=== PATIENT | female | born 1970 | race Caucasian/White ===

== ENCOUNTER 2022-10-05 03:06 | Emergency (ER) | payer MEDICAID ==
[~2022-10-05] VITALS: Ht 157.5 cm; Wt 72.6 kg
[2022-10-05 03:09] VITALS: BP 122/69
--- NOTE | 2022-10-05 03:25 | NUR ---
Patient taken to bed 7 via WC.
--- NOTE | 2022-10-05 04:16 | NUR ---
Dr. Blake examining patient.
[2022-10-05] MEDS ORDERED: HYDROcodone/APAP 5/325 MG 1 TAB TAB PO ONE (04:30)
[2022-10-05] MEDS ORDERED: KETOROLAC 30 MG/ML VIAL IM ONE (04:30)
[2022-10-05] MEDS ORDERED: LID5T TP (04:32)
[2022-10-05] MEDS ORDERED: ACET-8386 PO (04:32)
[2022-10-05 05:05] VITALS: BP 121/73
--- NOTE | 2022-10-05 05:06 | NUR ---
Patient discharged with v/s stable. Written and verbal after care instructions given and explained. Patient alert, oriented and verbalized understanding of instructions. Ambulatory with steady gait. All questions addressed prior to discharge. ID band removed. Patient advised to follow up with PMD. Rx of LIDOCAINE PATCH AND NORCO given. Patient educated on indication of medication including possible reaction and side effects. Opportunity to ask questions provided and answered.
== END 2022-10-05 05:06 | disposition home or self-care (01) ==
LOC: MED 03:06
DX: M54.41 Lumbago with sciatica, right side (principal); Z98.890 Other specified postprocedural states
CPT/HCPCS: 96372; 99283; J1885

== ENCOUNTER 2023-10-30 20:23 | Emergency (ER) | payer MEDICAID ==
[~2023-10-30] VITALS: Ht 157.5 cm; Wt 73.9 kg
[~2023-10-30 20:23] MED LIST: ACET-8905 PO; LID5T TP
[2023-10-30 20:30] VITALS: BP 106/73; PULSE 86; RESP 17; TEMP 98; O2SAT 97
[2023-10-31] MEDS ORDERED: ACETAMINOPHEN EXTRA STRENGTH 500 MG TAB PO ONE
[2023-10-31 00:14] LABS: BASOPHILS % (AUTO) 0.4 % (0.0-2.0); EOSINOPHILS # (AUTO) 0.1 K/uL (0-0.4); EOSINOPHILS % (AUTO) 2.6 % (0.0-4.0); HEMATOCRIT 37.3 % (36-48); HEMOGLOBIN 13.2 g/dL (12.0-16.0); LYMPHOCYTES # (AUTO) 0.6 K/uL (2.5-16.5); LYMPHOCYTES % (AUTO) 12.9 % (20.5-51.1); MEAN CORPUSCULAR HEMOGLOBIN 31 pg (27-31); MEAN CORPUSCULAR HGB CONC 35 g/dL (33-37); MEAN CORPUSCULAR VOLUME 88.8 fL (80-94); MONOCYTES # (AUTO) 0.5 K/uL (0.8-1.0); MONOCYTES % (AUTO) 9.4 % (1.7-9.3); NEUTROPHILS # (AUTO) 3.7 K/uL (1.8-7.7); NEUTROPHILS % (AUTO) 74.7 % (42.2-75.2); PLATELET COUNT (AUTO) 145 K/uL (140-450); RED CELL DISTRIBUTION WIDTH 13.8 % (11.6-13.7)
[2023-10-31 00:29] LABS: ALBUMIN 3.8 g/dL (3.4-5.0); CALCIUM 8.8 mg/dL (8.5-10.1); CREATININE 0.8 mg/dL (0.6-1.3); POTASSIUM 3.7 mmol/L (3.5-5.1); TOTAL BILIRUBIN 0.4 mg/dL (0.0-1.0); TOTAL PROTEIN, SERUM 8.1 g/dL (6.4-8.2)
[2023-10-31 00:38] LABS: ANION GAP 11.3 (8-16); CARBON DIOXIDE 29.4 mmol/L (21-32)
[2023-10-31] MEDS ORDERED: ACET-10509 PO (00:48)
[2023-10-31] MEDS ORDERED: HYDR25SU91 RC (00:48)
== END 2023-10-31 00:50 | disposition home or self-care (01) ==
LOC: MED 20:23
DX: K64.4 Residual hemorrhoidal skin tags (principal); R51.9 Headache, unspecified; Z79.899 Other long term (current) drug therapy
CPT/HCPCS: 36415; 80053; 81002; 81025; 85025; 99283